=== PATIENT | female | born 1985 | race Caucasian/White ===

== ENCOUNTER 2016-08-13 23:40 | Emergency (ER) | payer SELFPAY ==
[~2016-08-13] VITALS: Ht 160 cm; Wt 86.2 kg
[2016-08-13 23:43] VITALS: BP 151/77
--- NOTE | 2016-08-14 00:59 | NUR ---
BIB WHEELCHAIR TO ER BED 1
--- NOTE | 2016-08-14 01:07 | NUR ---
31/F BIBA C/O EPIGASTRIC PAIN x 45 MINUTES AGO. PT STATES PAIN NON-RADIATING. EKG NSR ON THE FIELD PER EMS, DENIES N/V/D; SKIN IS PINK/WARM/DRY; AAOX4 WITH EVEN AND STEADY GAIT; LUNGS CLEAR BL; HR EVEN AND REGULAR; PT DENIES ANY FEVER, CP, SOB, OR COUGH AT THIS TIME; PATIENT STATES PAIN OF 7/10 AT THIS TIME; VSS; PATIENT POSITIONED FOR COMFORT; HOB ELEVATED; BEDRAILS UP X2; BED DOWN. ER MD MADE AWARE OF PT STATUS.
--- NOTE | 2016-08-14 01:27 | NUR ---
Patient being evaluated by DR. LAN at bedside.
[2016-08-14] MEDS ORDERED: PANTOPRAZOLE 40 MG TABEC PO ONE (02:15)
[2016-08-14] MEDS ORDERED: BELLADONNA/PHENOBARBITAL 5 ML ORASYR PO ONE (02:15)
[2016-08-14] MEDS ORDERED: ALUMINUM HYD/MAG/SIMETHICONE 30 ML UDC PO ONE (02:15)
[2016-08-14] MEDS ORDERED: LIDOCAINE VISCOUS 2% 20 ML UDC PO ONE (02:15)
[2016-08-14 02:49] VITALS: BP 140/80
--- NOTE | 2016-08-14 02:50 | NUR ---
Patient discharged with v/s stable. Written and verbal after care instructions given and explained. Patient alert, oriented and verbalized understanding of instructions. Ambulatory with steady gait. All questions addressed prior to discharge. ID band removed. Patient advised to follow up with PMD. Rx of MAALOX, PROTONIX 40 MG given. Patient educated on indication of medication including possible reaction and side effects. Opportunity to ask questions provided and answered.
== END 2016-08-14 02:50 | disposition home or self-care (01) ==
LOC: MED 23:40
DX: K29.70 Gastritis, unspecified, without bleeding (principal); R03.0 Elevated blood-pressure reading, without diagnosis of hypertension

== ENCOUNTER 2016-11-25 22:16 | Emergency (ER) | payer OTHER ==
[~2016-11-25] VITALS: Ht 160 cm; Wt 101.3 kg
[2016-11-25 22:45] VITALS: BP_SYST 73
--- NOTE | 2016-11-26 00:56 | NUR ---
PT TAKEN TO BED 4
--- NOTE | 2016-11-26 01:10 | NUR ---
31Y/F PATIENT PRESENTS TO ED WITH C/O ABDOMINAL PAIN X 1 DAY . PT STATES PAIN AT EPIGASTRIC, NO FEVER. DENIES N/V/D; SKIN IS PINK/WARM/DRY; AAOX4 WITH EVEN AND STEADY GAIT; LUNGS CLEAR BL; HR EVEN AND REGULAR; PT DENIES ANY FEVER, CP, SOB, OR COUGH AT THIS TIME; PATIENT STATES PAIN OF 7/10 AT THIS TIME; VSS; PATIENT POSITIONED FOR COMFORT; HOB ELEVATED; BEDRAILS UP X2; BED DOWN. ER MD MADE AWARE OF PT STATUS.
[2016-11-26] MEDS ORDERED: DICYCLOMINE HCL LIQUID 10 MG/5 ML UDC PO ONE (01:15)
[2016-11-26] MEDS ORDERED: LIDOCAINE VISCOUS 2% 20 ML UDC PO ONE (01:15)
[2016-11-26] MEDS ORDERED: ALUMINUM HYD/MAG/SIMETHICONE 30 ML UDC PO ONE (01:15)
--- NOTE | 2016-11-26 01:15 | NUR ---
Patient being evaluated by DR. CALLE at bedside.
[2016-11-26 01:45] VITALS: BP 128/79
--- NOTE | 2016-11-26 01:45 | NUR ---
Patient discharged with v/s stable. Written and verbal after care instructions given and explained. Patient alert, oriented and verbalized understanding of instructions. Ambulatory with steady gait. All questions addressed prior to discharge. ID band removed. Patient advised to follow up with PMD. Rx of OMEPRAZOLE 20 MG given. Patient educated on indication of medication including possible reaction and side effects. Opportunity to ask questions provided and answered. D/C BY DR. CALLE.
== END 2016-11-26 01:45 | disposition home or self-care (01) ==
LOC: MED 22:16
DX: K29.70 Gastritis, unspecified, without bleeding (principal)
CPT/HCPCS: 81002; 81025; 99283

== ENCOUNTER 2017-03-09 22:41 | Inpatient (IN) | payer OTHER ==
--- NOTE | 2017-02-08 07:35 | NUR ---
RECEIVED REPORT FROM INSPECTOR METAL FABRICATING RN. PATIENT LAYING IN BED, AWAKE, ALERT AND ORIENTED X4. ON RM AIR, LUNG SOUNDS CLEAR. BOWEL SOUNDS ACTIVE. SAFETY CHECK DONE, BED IN LOWEST POSITION, SIDERAILS UP X2, CALL LIGHT WITHIN REACH. IV INFUSING TO RIGHT AC. NO SIGNS AND SYMPTOMS OF DISTRESS NOTED AT THIS TIME. WILL CONTINUE TO MONITOR. Addendum: 03/10/17 at 1013 by Erum Sanders RN ENTERED WRONG DATE. 03/10/17
[~2017-03-09] VITALS: Ht 162.6 cm; Wt 90.7 kg
[2017-03-09 22:49] VITALS: BP 153/90
--- NOTE | 2017-03-09 23:57 | NUR ---
PT TAKEN TO BED 6
--- NOTE | 2017-03-10 | NUR ---
31/F c/o epigastric pain x1 hour. Pt has hx gastritis and has been seen here before for same symptoms. Pt describes pain as 10/10, non radiating, constant, "twisting" sudden onset. Pt also reports x1 episode of vomiting while in ER lobby and c/o mid upper back pain after vomiting. Denies fever or chills. Denies diarrhea. Denies s/s of UTI. Abdomen soft, tender with palpation to epigastric area. Active bowel sounds x4 quadrant.s Denies medical hx. AOX4, macedonian speaking. VSS. Pt states she took gastritis medication prior to arrival with no improvement.
--- NOTE | 2017-03-10 00:13 | NUR ---
Patient being evaluated by physician at bedside.
[2017-03-10] MEDS ORDERED: NACL 0.9% 1,000 ML IV SCH (00:23)
[2017-03-10] MEDS ORDERED: HYDROmorphone PFS 2 MG/ML SYR IM ONE (00:25)
[2017-03-10] MEDS ORDERED: ONDANSETRON 4 MG/2 ML VIAL IVP ONE (00:25)
[2017-03-10] MEDS ORDERED: KETOROLAC 30 MG/ML VIAL IVP ONE (00:25)
[2017-03-10] MEDS ORDERED: HYDROmorphone PFS 2 MG/ML SYR IM/IVP ONE (00:50)
--- NOTE | 2017-03-10 01:21 | NUR ---
1 MG DILAUDID IVP GIVEN INSTEAD OF 2MG WITNESSED BY NORBERT
--- NOTE | 2017-03-10 01:23 | NUR ---
Pt taken to CT via w/c.
--- NOTE | 2017-03-10 01:39 | NUR ---
PT RETURN FROM CT
--- NOTE | 2017-03-10 01:54 | NUR ---
Pt resting comfortably at this time. VSS. IV fluids infusing. Pt tolerating well. All needs addressed.
[2017-03-10] MEDS ORDERED: PIPERACILLIN/TAZOBACTAM 4.5 GM in DEXTROSE 5% 100 ML IV ONE (02:00)
[2017-03-10] MEDS ORDERED: PIPERACILLIN/TAZOBACTAM 2.25 GM VIAL IV ONE (02:26)
--- NOTE | 2017-03-10 03:23 | NUR ---
Pt taken to x-ray via w/c.
[2017-03-10] MEDS ORDERED: metroNIDAZOLE 500 MG/NS PREMIX 100 ML IV ONE (03:25)
[2017-03-10] MEDS ORDERED: NACL 0.9% 1,000 ML IV ONE (03:25)
--- NOTE | 2017-03-10 03:31 | NUR ---
Pt returned from x-ray from w/c.
[2017-03-10] MEDS ORDERED: ONDANSETRON 4 MG/2 ML VIAL IVP PRN (03:35)
[2017-03-10] MEDS ORDERED: MORPHINE SULFATE 4 MG/ML SYR IVP PRN (03:35)
[2017-03-10] MEDS ORDERED: ACETAMINOPHEN 325 MG TAB PO PRN (03:35)
--- NOTE | 2017-03-10 03:50 | NUR ---
RECEIVED REPORT FROM DEYVI IN ER OVER THE PHONE.
--- NOTE | 2017-03-10 04:00 | NUR ---
PT BROUGHT IN VIA GURNEY BY ER NURSE. PT IS AAOX4, ON ROOM AIR, TAJIK SPEAKING, RESPIRATIONS EVEN AND UNLABORED. 20G IV TO RIGHT AC, SKIN IS INTACT. BOWEL SOUNDS PRESENT. VITAL SIGNS WNL. PLAN OF CARE DISCUSSED WITH PT IN [place], PT VERBALIZED UNDERSTANDING. ORIENTED PT TO ROOM, LIGHTS, TV, CALL LIGHT, WHITEBOARD, AND PHONE. PT IN STABLE CONDITION, NO SIGNS OF DISTRESS NOTED. BED IN LOW POSITION, CALL LIGHT WITHIN REACH. WILL CONTINUE TO MONITOR.
--- NOTE | 2017-03-10 04:04 | NUR ---
Patient will be admitted to care of DR. NOEL. Admited to [facility]. Will go to room 104-A. Belongings list completed. Report to
[2017-03-10] MEDS ORDERED: PIPERACILLIN/TAZOBACTAM 3.375 GM in DEXTROSE 5% 50 ML IV SCH (05:00)
[2017-03-10 05:04] VITALS: BP 115/59
[2017-03-10] MEDS: MORPHINE SULFATE 2 MG/ML SYR IVP PRN (06:24)
--- NOTE | 2017-03-10 06:24 | NUR ---
PT C/O ABDOMINAL PAIN 11/14, ADMINISTERED MORPHINE. PT TOLERATED WELL. PT IN STABLE CONDITION, NO SIGNS OF DISTRESS NOTED. BED IN LOW POSITION, CALL LIGHT WITHIN REACH. WILL CONTINUE TO MONITOR.
[2017-03-10] MEDS ORDERED: PIPERACILLIN/TAZOBACTAM 3.375 GM VIAL IV ONE (06:35)
--- NOTE | 2017-03-10 07:37 | NUR ---
ENDORSED PT TO DAY SHIFT RN, PT IN STABLE CONDITION, NOS/S OF DISTRESS NOTED.
[2017-03-10] MEDS ORDERED: INFLUENZA VIRUS VACCINE QUAD 0.5 ML SYR IMVAC SCH (07:40)
--- NOTE | 2017-03-10 09:19 | NUR ---
PATIENT HAS BEEN SCREENED AND CATEGORIZED HIGH NUTRITION RISK. PATIENT WILL BE SEEN WITHIN 1-2 DAYS OF ADMISSION. 03/10/17-03/11/[address]
[2017-03-10] MEDS: ENOXAPARIN 40 MG/0.4 ML SYR SUBQ SCH (09:29)
--- NOTE | 2017-03-10 10:52 | NUR ---
03/10/17 RD INITIAL ASSESSMENT COMPLETED PLEASE REFER TO NUTRITION ASSESSMENT UNDER CARE ACTIVITY FOR ESTIMATED NUTRITIONAL NEEDS. 1. CONTINUE CLEAR LIQUID DIET, ADVANCE TOLERATED TO REGULAR DIET 2. RD TO FOLLOW-UP 3-5 DAYS, MODERATE RISK ELYSE COSME RD
--- NOTE | 2017-03-10 11:05 | NUR ---
TRANSLATED FOR DR. IBANEZ. HE WANTS TO HAVE HER NPO FOR NOW, AND US DONE OF RUQ TO RULE OUT GALLSTONES. EXPLAINED TO PATIENT THAT IF GALLSTONES ARE PRESENT SHE WILL NEED SURGERY. PATIENT VERBALIZED UNDERSTANDING. NO QUESTIONS AT THIS TIME. WILL FOLLOW THROUGH WITH ORDERS.
--- NOTE | 2017-03-10 12:00 | NUR ---
PATIENT LAYING IN BED. NO SIGNS AND SYMPTOMS OF DISTRESS NOTED AT THIS TIME.
[2017-03-10] MEDS: NACL 0.9% 1,000 ML IV SCH ×2 (12:03→14:38)
[2017-03-10] MEDS: PIPER/TAZO 3.375GM/D5W PREMIX 50 ML IV SCH ×2 (12:20→21:46)
--- NOTE | 2017-03-10 14:03 | NUR ---
CM NOTE INITIAL REVIEW FAXED TO [facility] / FAX# [phone], C: [phone]
--- NOTE | 2017-03-10 15:30 | NUR ---
US TECH AT BEDSIDE. RESULTS PENDING. PATIENT TOLERATED US WELL.
[2017-03-10 16:00] VITALS: BP 115/62
--- NOTE | 2017-03-10 19:34 | NUR ---
ENDORSED PATIENT TO MILL CONTROLLER RN FOR CONTINUITY OF CARE. PATIENT IS STABLE AT THIS TIME.
--- NOTE | 2017-03-10 19:35 | NUR ---
RECEIVED REPORT AT THE BEDSIDE FROM DAY NURSE. PT IN STABLE CONDITION. PT IS AAOX4, PT IS ON RA, IV TO R AC 20 G, INFUSING WELL, PATENT AND INTACT. RESPIRATIONS ARE EVEN AND UNLABORED, BOWEL SOUNDS PRESENT. SKIN IS INTACT. INITIAL ASSESSMENT COMPLETE. PT VERBALIZED UNDERSTANDING. ALL SAFETY PRECAUTIONS MET, CALL LIGHT WITHIN REACH, WILL CONTINUE TO MONITOR.
--- NOTE | 2017-03-10 22:00 | NUR ---
PT RESTING COMFORTABLY IN BED NO S/S OF DISTRESS NOTED. ALL SAFETY PRECAUTIONS MET, CALL LIGHT WITHIN REACH, WILL CONTINUE TO MONITOR.
[2017-03-11] VITALS: BP 109/62
--- NOTE | 2017-03-11 | NUR ---
VS STABLE, NO S/S OF DISTRESS NOTED. ALL SAFETY PRECAUTIONS MET.
[2017-03-11] MEDS: MORPHINE SULFATE 2 MG/ML SYR IVP PRN ×3 (00:32→15:07)
[2017-03-11] MEDS: NACL 0.9% 1,000 ML IV SCH ×2 (04:06→22:12)
[2017-03-11] MEDS: PIPER/TAZO 3.375GM/D5W PREMIX 50 ML IV SCH ×3 (04:07→22:12)
--- NOTE | 2017-03-11 07:35 | NUR ---
RECEIVED REPORT FROM ORTHOPEDIC ASSISTANT RN. PATIENT LAYING IN BED, AWAKE, ALERT AND ORIENTED X4. LUNG SOUNDS ARE CLEAR, BOWEL SOUNDS ARE ACTIVE. IV FLUID INFUSING AT 70 ML/HR TO RIGHT AC, SITE IS CLEAN, DRY AND PATENT. NO SIGNS AND SYMPTOMS OF ACUTE DISTRESS NOTED AT THIS TIME. BED IN LOWEST POSITION, BILATERAL SIDERAILS X2 UP, HOB AT SEMI-FOWLERS, CALL LIGHT PLACED WITHIN REACH. PLAN OF CARE DISCUSSED WITH PATIENT, VERBALIZED UNDERSTANDING. WILL CONTINUE TO MONITOR.
--- NOTE | 2017-03-11 07:38 | NUR ---
ENDORSED PLAN OF CARE TO AM NURSE AT BEDSIDE, PT IN STABLE CONDITION, NO S/S OF DISTRESS.
[2017-03-11 08:00] VITALS: BP 109/71
[2017-03-11] MEDS: ENOXAPARIN 40 MG/0.4 ML SYR SUBQ SCH (09:18)
--- NOTE | 2017-03-11 10:13 | NUR ---
CM NOTE CONCURRENT REVIEW FAXED TO [facility] / FAX# [phone], C: [phone]
[2017-03-11 14:30] VITALS: BP 141/79
--- NOTE | 2017-03-11 14:32 | NUR ---
PATIENT COMPLAINING OF 8/10 ABDOMINAL PAIN, RUQ, MORPHINE WAS GIVEN AT 1225 PATIENT STATED NOT EFFECTIVE. PATIENT IS SWEATING AND BP 141/79. PAGED DR. RAMIREZ, NO CALL BACK. HE CAME TO THE UNIT AND I EXPLAINED THAT THE HIDA SCAN HE ORDERED WON'T BE DONE UNTIL 1700. ASKED IF I COULD GIVE ANOTHER DOSE OF MORPHINE SINCE IT IS GIVEN DURING HIDA SCAN. HE RESPONDED WITH CALLING THEM TO HAVE IT DONE SOONER. THE TECH IN NUCLE[facility] MED WON'T BE THERE UNTIL 1700.
[2017-03-11 16:00] VITALS: BP 146/89
--- NOTE | 2017-03-11 16:25 | NUR ---
PAGED DR IBANEZ TO UPDATE HIM. WAITING CALL BACK.
--- NOTE | 2017-03-11 16:35 | NUR ---
SPOKE TO DR IBANEZ TO UPDATE HIM ON THAT DR RAMIREZ HAD ORDERED A HIDA SCAN. HE WILL BE CONSULTING WITH HIM.
--- NOTE | 2017-03-11 17:24 | NUR ---
DR RAMIREZ CAME IN TO TALK TO PATIENT TO LET HER KNOW THAT HE WILL BE DOING THE LAPAROSCOPY CHOLECYSTECTOMY TODAY. PATIENT VERBALIZED UNDERSTANDING.
[2017-03-11] MEDS ORDERED: DESFLURANE 240 ML BTL INH ONE (18:10)
[2017-03-11] MEDS ORDERED: DEXAMETHASONE 4 MG/ML VIAL ONE (18:10)
[2017-03-11] MEDS ORDERED: SUCCINYLCHOLINE CHLORIDE 200 MG/10 ML VIAL IVP ONE (18:10)
[2017-03-11] MEDS ORDERED: PROPOFOL 200 MG/20 ML VIAL IV ONE (18:10)
[2017-03-11] MEDS ORDERED: ONDANSETRON 4 MG/2 ML VIAL ONE (18:10)
[2017-03-11] MEDS ORDERED: NEOSTIGMINE 1:1000 10 MG/10 ML VIAL ONE (18:10)
[2017-03-11] MEDS ORDERED: ROCURONIUM 50 MG/5 ML VIAL IV ONE (18:10)
[2017-03-11] MEDS ORDERED: GLYCOPYRROLATE 0.2 MG/ML VIAL ONE (18:10)
[2017-03-11] MEDS ORDERED: KETOROLAC 60 MG/2 ML VIAL IM ONE (18:10)
--- NOTE | 2017-03-11 18:18 | NUR ---
PATIENT IS BEING TAKEN TO SURGERY. IN STABLE CONDITION AT THIS TIME.
[2017-03-11] MEDS ORDERED: BUPIVACAINE-MPF 0.25% 30 ML VIAL INJ ONE (18:32)
[2017-03-11] MEDS ORDERED: fentaNYL 0.05 MG/ML VIAL ONE (18:40)
[2017-03-11] MEDS ORDERED: MIDAZOLAM 2 MG/2 ML VIAL ONE (18:41)
[2017-03-11] MEDS ORDERED: MEPERIDINE 50 MG/ML SYR ONE (18:41)
[2017-03-11] MEDS ORDERED: MIDAZOLAM 2 MG/2 ML VIAL IVP ONE (19:15)
[2017-03-11] MEDS ORDERED: MEPERIDINE 25 MG/ML SYR IVP PRN ×2 (19:15)
[2017-03-11] MEDS ORDERED: METOCLOPRAMIDE 10 MG/2 ML INJ VIAL IVP PRN (19:15)
--- NOTE | 2017-03-11 19:28 | NUR ---
ENDORSED PATIENT TO MORTGAGE BANKER RN FOR CONTINUITY OF CARE. PATIENT IS STILL AT OR DEPARTMENT AT THIS TIME.
--- NOTE | 2017-03-11 19:30 | NUR ---
RECEIVED REPORT FROM AM NURSE. PT IS IN THE OR.
[2017-03-11 20:45] VITALS: BP 141/87
--- NOTE | 2017-03-11 20:45 | NUR ---
RECEIVED REPORT FROM OR NURSE. PT RETURNED FROM OR VIA MIREYA S/Mynor CROWE. PT IS AA0X4. NO SIGNS OF ACUTE DISTRESS NOTED. FOUR SMALL ABDOMINAL INCISIONS ON ABDOMEN COVERED WITH BANDAGE, DRY AND INTACT. IV LINE IS ASYMPTOMATIC AND PATENT. ON ROOM AIR, SCD'S IN PLACE. BED ON LOW POSITION, BILATERAL HALF SIDE RAILS UP, CALL LIGHT WITHIN REACH, WILL CONTINUE TO MONITOR.
[2017-03-12] VITALS: BP 139/83
--- NOTE | 2017-03-12 02:45 | NUR ---
PT IS SLEEPING, EASY TO AROUSE. BED ON LOW POSITION, BILATERAL HALF SIDE RAILS UP, CALL LIGHT WITHIN REACH, WILL CONTINUE TO MONITOR.
[2017-03-12] MEDS: PIPER/TAZO 3.375GM/D5W PREMIX 50 ML IV SCH ×2 (04:22→12:37)
--- NOTE | 2017-03-12 05:40 | NUR ---
PT EDUCATED ON DEEP BREATHING AND COUGHING EXERCISES. PROVIDED PT WITH PILLOW TO HOLD TIGHTLY OVER INCISION. PT VERBALIZED UNDERSTANDING AND WILL CONTINUE WITH EXERCISES TOLERATED. WILL CONTINUE TO MONITOR.
--- NOTE | 2017-03-12 07:15 | NUR ---
ENDORSED PT TO AM NURSE FOR CONTINUITY OF CARE. PT IS IN STABLE CONDITION.
--- NOTE | 2017-03-12 08:30 | NUR ---
Patient is post operative abd surgery, and has drsg over three bandaids from procedure. No drainage noted. Patient has hypoactive bowel sounds on assessment. Denzel Cunningham RN
[2017-03-12] MEDS: ENOXAPARIN 40 MG/0.4 ML SYR SUBQ SCH (09:00)
--- NOTE | 2017-03-12 09:30 | NUR ---
Patient co not having bowel movement, nor passing gas, so I did get patient oob to bathroom. She sat in bathroom for more than 10 minutes, and was not able to have BM. She did her morning care, oral hygiene at wash room area. Sat in chair, and tolerated well. Denzel Cunningham RN
--- NOTE | 2017-03-12 10:37 | NUR ---
FAXED INITIAL REVIEW TO [facility] [phone] PHONE CAROL [phone] TRACKING #[id number] Addendum: 03/12/17 at 1411 by Shalini Montero CM IGNORE ABOVE NOTE, WRONG PATIENT.
--- NOTE | 2017-03-12 11:30 | NUR ---
Patient oob to bathroom once again, and I did remove fc per do. She has not had a bowel movement, and she did ambulate in matta. She binds her stomach during ambulation. She is refusing pain med. She did ambulate 300 feet, and tolerated well. Denzel Cunningham RN
--- NOTE | 2017-03-12 14:14 | NUR ---
CM NOTE CONCURRENT REVIEW FAXED TO [facility] / FAX# [phone], C: [phone]
[2017-03-12 16:08] VITALS: BP 146/68
--- NOTE | 2017-03-12 18:30 | NUR ---
Patient attending does visit patient this late day, and does tell patient that she will be discharged to home today, and he does give some instruction regarding eating at home the first few days. The patient does give acknowledgement of understanding information received. Denzel Cunningham RN
--- NOTE | 2017-03-12 19:15 | NUR ---
RECEIVED HANDOFF REPORT FROM AM RN. PATIENT A&OX4. IV SITE PATENT AND INTACT. PATIENT STATES PAIN WILL MEDICATE ORDERED. NO SIGNS OR SYMPTOMS OF ACUTE DISTRESS NOTED. FAMILY AT BEDSIDE. CALL LIGHT WITHIN REACH. WILL CONTINUE TO MONITOR.
[2017-03-12] MEDS ORDERED: NORCO 325 MG-51 TAB PO (22:15)
--- NOTE | 2017-03-12 22:45 | NUR ---
PATIENT DISCHARGED TO HOME. PATIENT IN STABLE CONDITION. PATIENT DENIES PAIN. IV TAKEN OUT, TIP INTACT. PATIENT AMBULATORY, WALKED OFF UNIT WITH FAMILY. NO SIGNS OR SYMPTOMS OF ACUTE DISTRESS NOTED. PATIENT STATED WILL FOLLOW UP WITH MD.
== END 2017-03-12 22:45 | disposition home or self-care (01) | DRG 263 ==
LOC: MED 22:41 → MTU 03-10 03:38
PROVIDERS: ADMIT Internal Medicine Pulmonary Disease; ATTEND Internal Medicine Pulmonary Disease
PROC: 0FT44ZZ Resection of Gallbladder, Percutaneous Endoscopic Approach (ICD-10-PCS; principal; 2017-03-11 18:00)
DX: K80.00 Calculus of gallbladder with acute cholecystitis without obstruction (principal); E66.01 Morbid (severe) obesity due to excess calories; E11.9 Type 2 diabetes mellitus without complications; D72.825 Bandemia; D72.829 Elevated white blood cell count, unspecified; E86.0 Dehydration; Z68.34 Body mass index [BMI] 34.0-34.9, adult

== ENCOUNTER 2021-09-05 21:03 | Emergency (ER) | payer OTHER ==
[~2021-09-05] VITALS: Ht 165.1 cm; Wt 90.7 kg
[~2021-09-05 21:03] MED LIST: HYDR-5122 PO
[2021-09-05 21:07] VITALS: BP 148/83
--- NOTE | 2021-09-05 22:48 | NUR ---
PT TAKEN TO ER BED 07
[2021-09-05] MEDS ORDERED: KETOROLAC 30 MG/ML VIAL IM ONE (23:00)
[2021-09-05] MEDS ORDERED: methocarbamoL 500 MG TAB PO ONE (23:00)
--- NOTE | 2021-09-05 23:35 | NUR ---
URINE OBTAINED. URINE DIP AND URINE PREG DONE. RESULTED. PATIENT GAIT STEADY. PT IN BED WITH SIDE RAILS UP
[2021-09-06] MEDS ORDERED: NAPR-54 PO (00:02)
[2021-09-06] MEDS ORDERED: METH-1681 PO (00:02)
[2021-09-06 00:18] VITALS: BP 148/83
--- NOTE | 2021-09-06 00:18 | NUR ---
Patient discharged with v/s stable. Written and verbal after care instructions given and explained. Patient alert, oriented and verbalized understanding of instructions. Ambulatory with steady gait. All questions addressed prior to discharge. ID band removed. Patient advised to follow up with PMD. Rx of METHOCARBAMOL NAPROXEN given. Patient educated on indication of medication including possible reaction and side effects. Opportunity to ask questions provided and answered.
== END 2021-09-06 00:18 | disposition home or self-care (01) ==
LOC: MED 21:03
DX: M54.9 Dorsalgia, unspecified (principal); R10.9 Unspecified abdominal pain; R06.02 Shortness of breath; R07.9 Chest pain, unspecified; Z79.899 Other long term (current) drug therapy
CPT/HCPCS: 71045; 81002; 81025; 93005; 96372; 99283; J1885; Q0092

== ENCOUNTER 2021-12-14 13:55 | Emergency (ER) | payer OTHER ==
[~2021-12-14] VITALS: Ht 158.2 cm; Wt 118.2 kg
[~2021-12-14 13:55] MED LIST changes: +METH-1681 PO; +NAPR-54 PO
--- NOTE | 2021-12-14 14:11 | NUR ---
PT W/C ASSISTED TO BED 8.
[2021-12-14] MEDS ORDERED: KETOROLAC 60 MG/2 ML VIAL IM ONE (14:15)
--- NOTE | 2021-12-14 14:15 | NUR ---
36 Y/O F C/O LEFT KNEE PAIN S/P FALL X YESTERDAY. DENIES N/V/D; SKIN IS PINK/WARM/DRY; AAOX4. LUNGS CLEAR BL; HR EVEN AND REGULAR; PT DENIES ANY FEVER, CP, SOB, OR COUGH AT THIS TIME. PATIENT STATES LEFT KNEE PAIN OF 8/10 NONRADIATING. PATIENT POSITIONED FOR COMFORT; HOB ELEVATED; BEDRAILS UP X2; BED DOWN. ER MD MADE AWARE OF PT STATUS. PMH: DENIES NKA MEDS: NONE
--- NOTE | 2021-12-14 14:22 | NUR ---
XR TECH AT BEDSIDE
[2021-12-14 15:38] VITALS: BP 119/75
--- NOTE | 2021-12-14 15:38 | NUR ---
Patient discharged with v/s stable. Written and verbal after care instructions given and explained. Patient verbalized understanding. Wheel Chair Assisted with to car. All questions addressed prior to discharge. Advised to follow up with PMD.
== END 2021-12-14 15:38 | disposition home or self-care (01) ==
LOC: MED 13:55
DX: S80.02XA Contusion of left knee, initial encounter (principal); W19.XXXA Unspecified fall, initial encounter; Y93.89 Activity, other specified; Y92.828 Other wilderness area as the place of occurrence of the external cause; Y99.8 Other external cause status
CPT/HCPCS: 73562; 96372; 99283; J1885; Q0092

== ENCOUNTER 2024-01-02 16:54 | Emergency (ER) | payer OTHER ==
[~2024-01-02] VITALS: Ht 157.5 cm; Wt 114.8 kg
[~2024-01-02 16:54] MED LIST changes: +NAPR-337 PO; -NAPR-54 PO
[2024-01-02 17:01] VITALS: BP 127/65; PULSE 83; RESP 20; TEMP 98.1; O2SAT 98
[2024-01-02] MEDS ORDERED: AMOX500C25 PO (17:29)
== END 2024-01-02 18:11 | disposition home or self-care (01) ==
LOC: MED 16:54
DX: H66.91 Otitis media, unspecified, right ear (principal); M79.2 Neuralgia and neuritis, unspecified; R20.0 Anesthesia of skin; Z79.899 Other long term (current) drug therapy
CPT/HCPCS: 81025; 99283